=== PATIENT | female | born 1955 | race Two or more races ===

== ENCOUNTER 2024-05-21 17:50 | Emergency (ER) | payer OTHER ==
[~2024-05-21] VITALS: Ht 162.6 cm; Wt 49.9 kg
[2024-05-21 18:25] VITALS: BP 124/82; O2SAT 99
[2024-05-21] MEDS ORDERED: KETOROLAC TROMETHAMINE 60 MG VIAL IM STA (19:22)
[2024-05-21] MEDS ORDERED: ACETAMINOPHEN 500 MG GEL..CAP PO STA (19:23)
[2024-05-21] MEDS ORDERED: KETOROLAC TROMETHAMINE 60 MG VIAL IM ONE (19:40)
[2024-05-21] MEDS ORDERED: ACETAMINOPHEN 500 MG GEL..CAP PO ONE (19:40)
== END 2024-05-21 19:50 | disposition home or self-care (01) ==
LOC: ER 17:52
DX: M25.471 Effusion, right ankle (principal); M25.472 Effusion, left ankle; I10 Essential (primary) hypertension
CPT/HCPCS: 96372; 99282; J1885